=== PATIENT | male | born 1990 | race Caucasian/White ===

== ENCOUNTER 2016-08-02 15:47 | Emergency (ER) | payer OTHER ==
--- NOTE | 2016-08-02 16:27 | UC ---
Respiratory Complaint HPI - History of Current Complaint Chief Complaint: UCGeneralIllness Stated Complaint: COUGH Time Seen by Provider: 08/02/16 16:02 Hx Obtained From: Patient Onset/Duration: Gradual Onset, Lasting Days - 2, Still Present Timing: Constant Severity Initially: Moderate Severity Currently: Moderate Character: Cough: Nonproductive Aggravating Factors: Exertion, Deep Breaths Associated Signs And Symptoms: Positive: URI, Nasal Congestion. Negative: Fever , Chills, Pleuritic Chest Pain - Allergies/Home Medications Allergies/Adverse Reactions: Allergies Allergy/AdvReac Type Severity Reaction Status Date / Time Aspirin Allergy Hives Verified 08/02/16 16:16 Home Medications: Home Medications Multivit-Min W/Fe-FA [ and Iron] 1 tab PO BEDTIME 08/02/16 [ History Confirmed 08/02/16] PMH/Surg Hx/FS Hx/Imm Hx Previously Healthy: Yes - Surgical History Surgical History: Yes Surgery Procedure, Year, and Place: RIGHT HAND X 2 - Family History Known Family History: Negative: Diabetes - Social History Alcohol Use: None Substance Use Type: None Smoking Status (MU): Former Smoker When Did the Patient Quit Smoking/Using Tobacco: 6 MOS Review of Systems Constitutional: Negative Skin: Negative Eyes: Negative ENT: Nasal Discharge Respiratory: Cough Cardiovascular: Negative All Other Systems Reviewed And Are Negative: Yes Physical Exam Triage Information Reviewed: Yes Appearance: Well-Appearing, No Pain Distress, Well-Nourished Vital Signs: Initial Vital Signs Temp 98.4 F 08/02/16 16:10 Pulse 84 08/02/16 16:10 Resp 16 08/02/16 16:10 BP 105/47 08/02/16 16:10 Pulse Ox 98 08/02/16 16:10 Vital Signs Reviewed: Yes Eyes: Positive: Conjunctiva Clear ENT: Positive: Normal ENT inspection, Hearing grossly normal, Pharynx normal Neck exam: Normal Neck: Positive: Supple, Nontender, No Lymphadenopathy Respiratory: Positive: Chest non-tender, Lungs clear, Normal breath sounds Cardiovascular Exam: Normal Cardiovascular: Positive: RRR, No Murmur, Pulses Normal UC Diagnostic Evaluation - Laboratory O2 Sat by Pulse Oximetry: 98 Respiratory Course/Dx - Differential Dx/Diagnosis Provider Diagnoses: uri Discharge - Discharge Plan Condition: Stable Disposition: HOME Patient Education Materials: Upper Respiratory Infection (ED) Additional Instructions: follow up as needed
== END 2016-08-02 16:50 | disposition home or self-care (01) ==
LOC: UCCORT 15:47
DX: J06.9 Acute upper respiratory infection, unspecified (principal); Z87.891 Personal history of nicotine dependence; Z88.0 Allergy status to penicillin
CPT/HCPCS: 99201; G0463

== ENCOUNTER 2019-01-19 12:29 | Emergency (ER) | payer OTHER ==
[2019-01-19 13:10] VITALS: BP 124/69
--- NOTE | 2019-01-19 13:14 | UC ---
UC Dental HPI - HPI Summary HPI Summary: 28 year old female who has had a broken left upper molar which has recently become infected, tender. The patient has an appointment with her dentist this coming . She denies any fever or chills. - History of Current Complaint Chief Complaint: UCDentalProblem Stated Complaint: DENTAL PAIN Time Seen by Provider: 01/19/19 13:06 Hx Obtained From: Patient Hx Last Menstrual Period: 01/2019 ?: No Onset/Duration: Gradual Onset Severity: Moderate Pain Intensity: 8 Aggravating Factor(s): Chewing Alleviating Factor(s): Nothing - Allergies/Home Medications Allergies/Adverse Reactions: Allergies Allergy/AdvReac Type Severity Reaction Status Date / Time aspirin Allergy See Comment Verified 01/19/19 13:02 shellfish derived Allergy Anaphylatic Verified 01/19/19 13:02 Shock acetaminophen [From Vicodin] AdvReac Itching Verified 01/19/19 13:02 hydrocodone [From Vicodin] AdvReac Itching Verified 01/19/19 13:02 Home Medications: Home Medications Acetaminophen [Tylenol Extra Strength] 1,000 mg PO ONCE PRN 01/19/19 [History Confirmed 01/19/19] PMH/Surg Hx/FS Hx/Imm Hx Previously Healthy: Yes - Surgical History Surgical History: Yes Surgery Procedure, Year, and Place: RIGHT HAND X 2 - Family History Known Family History: Negative: Diabetes - Social History Alcohol Use: None Substance Use Type: None Smoking Status (MU): Heavy Every Day Tobacco Smoker Type: Cigarettes Amount Used/How Often: 1/2 PPD When Did the Patient Quit Smoking/Using Tobacco: 6 MOS Review of Systems All Other Systems Reviewed And Are Negative: Yes ENT: Positive: Dental Pain - Left upper distal molar is broken and painful. Is Patient Immunocompromised?: No Physical Exam Triage Information Reviewed: Yes Appearance: Well-Appearing, No Pain Distress, Well-Nourished Vital Signs: Initial Vital Signs Temp 98.4 F 01/19/19 13:05 Pulse 85 01/19/19 13:05 Resp 15 01/19/19 13:05 BP 124/69 01/19/19 13:05 Pulse Ox 100 01/19/19 13:05 Vital Signs Reviewed: Yes Eyes: Positive: Conjunctiva Clear ENT: Positive: Hearing grossly normal, Pharynx normal Dental: Positive: Dental Fracture @ - Patient has a broken left upper distal molar with dental carry present the gumline itself is red and swollen there is no evidence of an abscess at this point in time. She has several other teeth with dental caries and poor dentition Neck exam: Normal Neck: Positive: Supple, Nontender, No Lymphadenopathy Respiratory: Positive: Lungs clear, Normal breath sounds, No respiratory distress, No accessory muscle use Cardiovascular: Positive: RRR, No Murmur, Pulses Normal, Brisk Capillary Refill Musculoskeletal Exam: Normal Neurological Exam: Normal Psychological Exam: Normal Skin Exam: Normal Dental Complaint Course/Dx - Course Course Of Treatment: Patient refused an injection of Toradol here. She is to follow-up with her dentist on as scheduled. She may continue alternating Tylenol and Motrin and I did give her 6 tablets of Percocet which she states she can take without any adverse reaction. - Differential Dx/Diagnosis Provider Diagnosis: Toothache Discharge - Sign-Out/Discharge Documenting (check all that apply): Patient Departure All imaging exams completed and their final reports reviewed: No Studies - Discharge Plan Condition: Fair Disposition: HOME Prescriptions: Amoxicillin PO (*) [Amoxicillin 875 MG (*)] 875 mg PO BID 10 Days #20 tab Clotrimazole [Lotrimin AF] 1 applic TOPICAL BID 7 Days #1 tube Ibuprofen TAB* [Motrin TAB* 600 MG] 600 mg PO Q8H PRN #30 tab PRN Reason: Pain - Mild Oxycodone HCl/Acetaminophen [Percocet] 1 tab PO Q4HR PRN #6 tab MDD 6 PRN Reason: Pain - Severe Patient Education Materials: Tinea Corporis (ED), Toothache (ED) Referrals: [facility] [Outside] No Primary Care Phys,NOPCP [Primary Care Provider] - Additional Instructions: Keep your appointment with your dentist on . May alternate Tylenol every 4 hours with Motrin every 8 hours. Take the Motrin with food. You may use the Percocet for severe pain however does have Tylenol in it therefore do not take it within 4 hours of taking regular Tylenol. Follow-up with your primary care provider if no improvement in the ringworm in one week. Avoid skin to skin contact - Billing Disposition and Condition Condition: FAIR Disposition: Home - Attestation Statements Provider Attestation: This patient was not seen by me. I was available for consult. JULIANNE
== END 2019-01-19 13:46 | disposition home or self-care (01) ==
LOC: UCCORT 12:29
DX: S02.5XXA Fracture of tooth (traumatic), initial encounter for closed fracture (principal); X58.XXXA Exposure to other specified factors, initial encounter; Y92.9 Unspecified place or not applicable; F17.210 Nicotine dependence, cigarettes, uncomplicated
CPT/HCPCS: 99212; G0463